=== PATIENT | female | born 1980 | race African-American/Black ===

== ENCOUNTER 2016-10-11 13:04 | Emergency (ER) ==
[2016-10-11 13:11] VITALS: BP 157/85
[2016-10-11] MEDS ORDERED: XYLOCAINE 1%/EPI 1:100,000 INJ ONE (13:41)
[2016-10-11] MEDS ORDERED: MARCAINE 0.5% INJ ONE (13:42)
[2016-10-11] MEDS ORDERED: MARCAINE 0.5% PF ONE (13:47)
--- NOTE | 2016-10-11 13:47 | PROVIDER DOCUMENTATION ---
HPI-General Adult - General Source: patient - History of Present Illness -Gen Adult Nature of Presenting Problems: PT C/O INTERCOSTAL NERVE PAIN AROUND T-7 ON THE LEFT SIDE,PT RATES HER PAIN A 8 OUT OF 10 ON THE PAIN SCALE. Location of Pain/Injury: reports: back Pain Radiation: reports: no radiation Quality of Pain: reports: aching Severity: reports: mild Onset/Duration: reports: 24 hours ago Context/Activities at Onset: reports: none Modifying Factors: improves with: movement (TO THE RIGHT SIDE), palpation Associated Symptoms: reports: denies symptoms Similar Symptoms Previously?: No Recently seen or treated by another doctor?: No <Jose Martines - Last Filed: 10/11/16 13:42> <Sohail Muñiz - Last Filed: 10/11/16 15:40> - General Chief Complaint: Abdominal Pain Stated Complaint: CHEST PAIN Time Seen by Provider: 10/11/16 13:32 Allergies/Adverse Reactions: Patient Allergies Allergy/AdvReac Type Severity Reaction Status Date / Time erythromycin base AdvReac Mild Unknown Verified 08/25/16 22:14 Home Medications: Home Medication List Medication Instructions Recorded Confirmed Last Taken Type Naproxen 500 mg PO BID PRN PRN #60 tablet 10/11/16 Unknown Rx Review of Systems - Adult - REVIEW OF SYSTEMS - ADULT Constitutional: denies: chills, fever, fatique Cardiovascular: denies: chest pain, irregular heart rate, palpitations Respiratory: denies: cough, shortness of breath, wheezing Gastrointestinal: denies: abdominal pain, diarrhea, nausea, vomiting Genitourinary: denies: dysuria, flank pain, frequent UTI's Musculoskeletal: reports: back pain. denies: joint pain, neck pain Integumentary: denies: hives, itching, rash Neurological: denies: dizziness/vertigo, headache/migraines, numbness Psychiatric: denies: anxiety, emotional problems, suicidal thoughts All Other Systems: Reviewed and Negative <Jose Martines - Last Filed: 10/11/16 13:42> Past History - Adult - PAST MEDICAL HISTORY-ADULT Review of Records: reports: Old Records Reviewed, Nursing Assessment Review - PRIOR SURGERIES/PROCEDURES Surgical/Procedure History: reports: hysterectomy, - IMMUNIZATION STATUS Childhood Immunizations: See Nurse Assessment Flu Vaccine: See Nurse Assessment - FAMILY HISTORY Family History: reviewed, not pertinent - SOCIAL HISTORY Smoking: denies Substance Use: none/never Alcohol Use Frequency: never Living Situation: family <BobbiJose nunes - Last Filed: 10/11/16 13:42> Physical Exam-General - PHYSICAL EXAM-ADULT Initial Vital Signs Reviewed: Yes - CONSTITUTIONAL General Appearance: appears well, alert, no apparent distress - EYES Eyes: PERRL/EOMI, pink conjunctivae, fundi clear, no AV nicking - HEAD, EARS, NOSE, MOUTH & THROAT HENMT: normocephalic/atraumatic, moist mucous membranes - NECK Neck: non-tender, full range of motion, supple, normal inspection - RESPIRATORY Respiratory: chest non-tender, lungs clear, normal breath sounds, no pleuratic chest pain, no respiratory distress - CARDIOVASCULAR Cardiovascular: normal peripheral pulses, regular rate, rhythm, no edema, no gallop, no JVD, no murmur - MUSCULOSKELETAL Back Exam: no CVA tenderness, no vertebral tenderness, other (PT C/O INTERCOASTAL PAIN AROUND T-7 ON THE LEFT SIDE) Extremity: normal range of motion, non-tender, normal gait, normal inspection - SKIN Integumentary: normal color, normal turgor, warm/dry - PSYCHIATRIC Psych/Mental Status: normal mood/affect, normal thought content, normal thought process, oriented x 3 <BobbiJose - Last Filed: 10/11/16 13:42> Departure <BobbiJose - Last Filed: 10/11/16 13:42> - Departure Time of Disposition Order: 15:39 Certified Medical Emergency: Emergent <Sohail Muñiz - Last Filed: 10/11/16 15:40> - Departure DIAGNOSIS: Myofacial muscle pain Disposition: HOME 01 Condition: Stable Prescriptions: Naproxen 500 mg PO BID PRN PRN #60 tablet PRN Reason: Pain Referrals: Rajiv Boo MD [STAFF PHYSICIAN] - None,PCP [Primary Care Provider] - Forms: Return to School/Parent Work Instructions: Myofascial Pain Syndrome and Fibromyalgia, Naproxen Sodium oral tablet, extended-release Physician Attestation
[2016-10-11] MEDS ORDERED: XYLOCAINE 1%/EPI 1:100,000 ONE (13:57)
[2016-10-11 14:03] LABS: MANUAL DIFF NEEDED? NO
[2016-10-11 14:06] LABS: BASO% 0.3 % (0.0-0.8); EOS% 1.4 % (0.0-10.0); HEMATOCRIT 37.8 % (37.0-47.0); HEMOGLOBIN 12.6 g/dL (12.0-16.0); IMM GRAN# 0.02 X1000 (0.0-0.04); IMM GRAN% 0.3 % (0.0-0.5); LYMPH# 2.26 X1000 (1.2-3.4); LYMPH% 32.8 % (20.5-51.1); MCH 26.9 PG (27-31); MCHC 33.3 g/dL (33-37); MCV 80.6 FL (81-99); MONO# 0.48 X1000 (0.11-0.59); MPV 9.4 FL (7.4-10.4); NEUT% 58.2 % (42.2-75.2); PLT 280 X1000 (130-400); RBC 4.69 XMIL (4.2-5.4)
--- NOTE | 2016-10-11 14:32 | Diag Imaging Result Document ---
PROCEDURE NAME: CHEST-2 VIEWS - 10/11/2016 PA AND LATERAL RADIOGRAPH OF THE CHEST: COMPARISON: 08/25/2016. FINDINGS: Inspiration is suboptimal. There is minimal linear scarring versus atelectasis at the mid lung zones bilaterally. The lungs are clear otherwise. There is no definite pleural fluid collection. Cardiac silhouette is borderline prominent, but stable. Central vasculature is unremarkable. IMPRESSION: Minimal subsegmental atelectasis versus scarring in the mid lung zones bilaterally. No definite acute pathology, otherwise.
== END 2016-10-11 15:46 | disposition home or self-care (01) ==
LOC: P.ED 13:04
DX: M79.1 Myalgia (principal); M54.6 Pain in thoracic spine; R07.9 Chest pain, unspecified; R07.82 Intercostal pain
CPT/HCPCS: 71020; 85025; S0020